=== PATIENT | female | born 1985 | race African-American/Black ===

== ENCOUNTER 2020-07-04 22:41 | Inpatient (IN) ==
[2020-07-04] MEDS ORDERED: hydrALAZINE 20 MG/1 ML VIAL IV STA (23:15)
[2020-07-04] MEDS ORDERED: ONDANSETRON 4 MG/2 ML VIAL IV STA (23:15)
[2020-07-04] MEDS ORDERED: MORPHINE 4 MG/1 ML VIAL IV STA (23:15)
[2020-07-04 23:26] LABS: Basophils % 0.3 % (0.0-0.8); Eosinophils # 0.1 10*3/uL (0.0-0.87); Hematocrit 41.7 VOL% (35.7-47.0); Hemoglobin 13.6 GM/DL (12.0-16.0); Immature Granulocytes % 0.4 %; Immature Granulocytes Absolute 0.04 #; Lymphocytes # 2.5 10*3/uL (1.4-4.0); Lymphocytes % 25.8 % (21.3-54.2); Mean Corpuscular HGB Conc 32.6 GM/DL (32-36); Mean Corpuscular Volume 87.4 FL (87-102); Monocytes % 7.1 % (1.7-12.7); Neutrophils % 65.4 % (38.7-73.9); Platelet Count 305 T/CUMM (130-400); Red Blood Count 4.77 MC/CUMM (3.8-5.5); Red Cell Distribution Width 12.1 % (9.3-17.3); White Blood Count 9.8 T/CUMM (4-12)
[2020-07-04 23:38] LABS: Apearance,Urine Slightly Hazy (Clear); Bacteria,Urine Occasional /HPF (Few); Bilirubin,Urine Negative (Negative); Blood, Urine Negative (Negative); Glucose,Urine (UA) Negative (Negative); Ketones,Urine Negative (Negative); Mucus,Urine Moderate /LPF (Occasional); Nitrite,Urine Negative (Negative); Protein,Urine >=500 MG/DL; RBC,Urine 1 /HPF (0-4); Squamous Epithelial Cell,Urine Occasional /HPF (0-10); Urine Color Amber (Yellow); Urine Specific Gravity 1.028 (1.001-1.035); Urine Urobilinogen < 2.0 EU/DL (0.2-1.0); WBC,Urine 3 /HPF (0-6)
[2020-07-04 23:48] LABS: Albumin 4.1 G/DL (3.4-5.0); Bilirubin,Total 0.4 MG/DL (0.2-1.0); Calcium 9.6 MG/DL (8.5-10.1); Osmolality,Calculated 277.8 MOS/KG (273-304)
[2020-07-05] MEDS ORDERED: hydrALAZINE 20 MG/1 ML VIAL IV STA (01:17)
[2020-07-05] MEDS ORDERED: MORPHINE 4 MG/1 ML VIAL IV STA (01:53)
[2020-07-05] MEDS ORDERED: NICOTINE 21 MG/24 HR PATCH TRANSDERM PRN (04:24)
[2020-07-05] MEDS ORDERED: DEXTROSE 50% 25 GM/50 ML VIAL IV PRN (04:24)
[2020-07-05] MEDS ORDERED: GLUCAGON 1 MG VIAL IM PRN (04:24)
[2020-07-05] MEDS ORDERED: ACETAMINOPHEN 325 MG TABLET PO PRN (04:24)
[2020-07-05] MEDS ORDERED: ALUMINUM/MAGNES/SIMETH MAX STR 30 ML UDCUP PO PRN (04:24)
[2020-07-05] MEDS: SODIUM CHLORIDE 0.9% 1,000 ML IV SCH ×3 (05:47→21:50)
[2020-07-05] MEDS: INSULIN REGULAR 100 UNIT/ML SUBCUT SCH ×3 (05:47→19:31)
[2020-07-05 06:19] LABS: Risk Ratio 4.92; VLDL CHOLESTEROL 36.2 MG/DL
[2020-07-05 06:21] LABS: Albumin 4.2 G/DL (3.4-5.0); Bilirubin,Direct 0.13 MG/DL (0.0-0.20); Bilirubin,Indirect 0.5 MG/DL (0.0-1.0); Bilirubin,Total 0.6 MG/DL (0.2-1.0); Total Protein 9.1 G/DL (6.4-8.3)
[2020-07-05 07:10] LABS: Hepatitis B Core IgM Quant 0.12 Index; Hepatitis B Surface Ag Quant < 0.10 Index; Hepatitis B Surface Ag Result Negative (Negative); Hepatitis C Virus Ab Quant 0.06 Index; Hepatitis C Virus Ab Result Negative (Negative)
[2020-07-05] MEDS: PANTOPRAZOLE 40 MG VIAL IV SCH (09:52)
[2020-07-05] MEDS: PROMETHAZINE 25 MG/1 ML VIAL IM PRN (09:53)
[2020-07-05] MEDS: MORPHINE 4 MG/1 ML VIAL IV PRN ×3 (09:53→19:30)
[2020-07-05 12:15] LABS: HIV Antigen/Antibody Result Nonreactive (Nonreactive)
[2020-07-05] MEDS: ONDANSETRON 4 MG/2 ML VIAL IV PRN (14:23)
[2020-07-06] MEDS: INSULIN REGULAR 100 UNIT/ML SUBCUT SCH ×4 (00:34→17:38)
[2020-07-06] MEDS: MORPHINE 4 MG/1 ML VIAL IV PRN ×5 (01:32→21:36)
[2020-07-06] MEDS: SODIUM CHLORIDE 0.9% 1,000 ML IV SCH ×3 (03:32→23:59)
[2020-07-06 06:13] LABS: Basophils % 0.3 % (0.0-0.8); Eosinophils # 0.1 10*3/uL (0.0-0.87); Eosinophils % 1.4 % (0.00-10.9); Hematocrit 35.5 VOL% (35.7-47.0); Hemoglobin 11.5 GM/DL (12.0-16.0); Immature Granulocytes % 0.3 %; Immature Granulocytes Absolute 0.03 #; Lymphocytes # 3.3 10*3/uL (1.4-4.0); Mean Corpuscular HGB Conc 32.4 GM/DL (32-36); Mean Corpuscular Volume 88.8 FL (87-102); Mean Platelet Volume 11.5 FL (9.6-12.0); Monocytes % 8.2 % (1.7-12.7); Neutrophils % 54.8 % (38.7-73.9); Platelet Count 262 T/CUMM (130-400); Red Cell Distribution Width 12.4 % (9.3-17.3); White Blood Count 9.3 T/CUMM (4-12)
[2020-07-06 06:35] LABS: Albumin 3.1 G/DL (3.4-5.0); Bilirubin,Total 0.6 MG/DL (0.2-1.0); Calcium 8.3 MG/DL (8.5-10.1); Osmolality,Calculated 273.8 MOS/KG (273-304); Total Protein 6.8 G/DL (6.4-8.3)
[2020-07-06] MEDS: PANTOPRAZOLE 40 MG VIAL IV SCH (12:45)
[2020-07-06] MEDS: PROMETHAZINE 25 MG/1 ML VIAL IM PRN (12:46)
[2020-07-06] MEDS: lisinopriL 5 MG TABLET PO SCH (21:46)
[2020-07-07] MEDS: MORPHINE 4 MG/1 ML VIAL IV PRN ×5 (02:06→21:34)
[2020-07-07] MEDS: ONDANSETRON 4 MG/2 ML VIAL IV PRN ×2 (02:07→06:31)
[2020-07-07] MEDS: INSULIN REGULAR 100 UNIT/ML SUBCUT SCH ×4 (06:29→19:24)
[2020-07-07] MEDS: SODIUM CHLORIDE 0.9% 1,000 ML IV SCH ×4 (06:30→22:30)
[2020-07-07] MEDS ORDERED: propofoL 200 MG/20 ML VIAL IV ONE (09:00)
[2020-07-07] MEDS ORDERED: LIDOCAINE 2% 5 ML VIAL ONE (09:00)
[2020-07-07] MEDS: lisinopriL 5 MG TABLET PO SCH ×2 (10:59→21:36)
[2020-07-07] MEDS: PANTOPRAZOLE 40 MG VIAL IV SCH (10:59)
[2020-07-07 14:10] LABS: Albumin 3.1 G/DL (3.4-5.0); Bilirubin,Direct 0.31 MG/DL (0.0-0.20); Bilirubin,Indirect 0.3 MG/DL (0.0-1.0); Bilirubin,Total 0.6 MG/DL (0.2-1.0); Total Protein 6.8 G/DL (6.4-8.3)
[2020-07-07] MEDS ORDERED: LEVOFLOXACIN INJ 500 MG in PREMIX 1 EACH IV ONE (15:08)
[2020-07-07] MEDS ORDERED: metroNIDAZOLE INJ 500 MG in PREMIX 1 EACH IV ONE (15:08)
[2020-07-07] MEDS: hydrALAZINE 20 MG/1 ML VIAL IV PRN (21:30)
[2020-07-07] MEDS: ZALEPLON 5 MG CAPSULE PO PRN (21:37)
[2020-07-08] MEDS: INSULIN REGULAR 100 UNIT/ML SUBCUT SCH ×5 (00:40→23:45)
[2020-07-08] MEDS: PROMETHAZINE 25 MG/1 ML VIAL IM PRN ×2 (00:48→09:19)
[2020-07-08] MEDS: HYDROmorphone 2 MG/1 ML VIAL IV PRN ×5 (01:51→23:43)
[2020-07-08] MEDS: MORPHINE 4 MG/1 ML VIAL IV PRN ×3 (05:18→17:22)
[2020-07-08] MEDS: SODIUM CHLORIDE 0.9% 1,000 ML IV SCH ×4 (05:22→15:41)
[2020-07-08 05:49] LABS: Basophils % 0.3 % (0.0-0.8); Eosinophils # 0.1 10*3/uL (0.0-0.87); Eosinophils % 1.7 % (0.00-10.9); Hematocrit 34.9 VOL% (35.7-47.0); Hemoglobin 11.4 GM/DL (12.0-16.0); Immature Granulocytes % 0.4 %; Immature Granulocytes Absolute 0.03 #; Mean Corpuscular HGB Conc 32.7 GM/DL (32-36); Mean Corpuscular Volume 87.7 FL (87-102); Mean Platelet Volume 11.4 FL (9.6-12.0); Monocytes % 8.6 % (1.7-12.7); Platelet Count 265 T/CUMM (130-400); Red Blood Count 3.98 MC/CUMM (3.8-5.5); Red Cell Distribution Width 12.4 % (9.3-17.3)
[2020-07-08 06:06] LABS: Albumin 3.2 G/DL (3.4-5.0); Bilirubin,Direct 1.25 MG/DL (0.0-0.20); Bilirubin,Total 2.2 MG/DL (0.2-1.0); Total Protein 7.1 G/DL (6.4-8.3)
[2020-07-08 06:07] LABS: Albumin 3.1 G/DL (3.4-5.0); Bilirubin,Total 2.1 MG/DL (0.2-1.0); Calcium 8.8 MG/DL (8.5-10.1); Osmolality,Calculated 279.7 MOS/KG (273-304); Total Protein 7.2 G/DL (6.4-8.3)
[2020-07-08] MEDS: PANTOPRAZOLE 40 MG VIAL IV SCH (11:22)
[2020-07-08] MEDS: lisinopriL 5 MG TABLET PO SCH ×2 (16:01→20:39)
[2020-07-08] MEDS: ONDANSETRON 4 MG/2 ML VIAL IV PRN (20:39)
[2020-07-08] MEDS: ZALEPLON 5 MG CAPSULE PO PRN (20:49)
[2020-07-08] MEDS: hydrALAZINE 20 MG/1 ML VIAL IV PRN (23:46)
[2020-07-09] MEDS: MORPHINE 4 MG/1 ML VIAL IV PRN ×2 (02:23→07:01)
[2020-07-09] MEDS: HYDROmorphone 2 MG/1 ML VIAL IV PRN ×3 (04:46→21:53)
[2020-07-09 06:08] LABS: Basophils % 0.3 % (0.0-0.8); Eosinophils # 0.2 10*3/uL (0.0-0.87); Hematocrit 35.3 VOL% (35.7-47.0); Hemoglobin 11.5 GM/DL (12.0-16.0); Immature Granulocytes % 0.5 %; Immature Granulocytes Absolute 0.04 #; Lymphocytes # 1.8 10*3/uL (1.4-4.0); Lymphocytes % 24.1 % (21.3-54.2); Mean Corpuscular HGB Conc 32.6 GM/DL (32-36); Mean Corpuscular Volume 88.7 FL (87-102); Mean Platelet Volume 11.7 FL (9.6-12.0); Monocytes % 9.6 % (1.7-12.7); Neutrophils % 63.5 % (38.7-73.9); Platelet Count 276 T/CUMM (130-400); Red Blood Count 3.98 MC/CUMM (3.8-5.5); Red Cell Distribution Width 12.5 % (9.3-17.3); White Blood Count 7.5 T/CUMM (4-12)
[2020-07-09 06:45] LABS: Albumin 3.2 G/DL (3.4-5.0); Bilirubin,Total 3.5 MG/DL (0.2-1.0); Calcium 8.9 MG/DL (8.5-10.1); Osmolality,Calculated 274.1 MOS/KG (273-304); Total Protein 7.3 G/DL (6.4-8.3)
[2020-07-09] MEDS: INSULIN REGULAR 100 UNIT/ML SUBCUT SCH ×3 (06:49→19:47)
[2020-07-09] MEDS: lisinopriL 5 MG TABLET PO SCH ×2 (09:48→21:52)
[2020-07-09] MEDS: PANTOPRAZOLE 40 MG VIAL IV SCH (09:48)
[2020-07-09] MEDS ORDERED: LIDOCAINE 1%/EPI INJ 20 ML VIAL ONE (10:23)
[2020-07-09] MEDS ORDERED: BUPIVACAINE MPF 0.25% 30 ML VIAL ONE (10:23)
[2020-07-09] MEDS: SODIUM CHLORIDE 0.9% 1,000 ML IV SCH (10:24)
[2020-07-09] MEDS ORDERED: LEVOFLOXACIN INJ 100 ML IV ONE (10:59)
[2020-07-09] MEDS ORDERED: SEVOFLURANE 1 UNIT/15 MINUTE INH ONE (12:10)
[2020-07-09] MEDS ORDERED: LIDOCAINE 2% 5 ML VIAL ONE (12:10)
[2020-07-09] MEDS ORDERED: propofoL 200 MG/20 ML VIAL IV ONE (12:10)
[2020-07-09] MEDS ORDERED: fentaNYL 100 MCG/2 ML VIAL ONE (12:10)
[2020-07-09] MEDS ORDERED: DEXAMETHASONE 4 MG/1 ML VIAL ONE (12:11)
[2020-07-09] MEDS ORDERED: PHENYLEPHRINE 10 MG/1 ML VIAL IV ONE (12:11)
[2020-07-09] MEDS ORDERED: ROCURONIUM 100 MG/10 ML VIAL IV ONE (12:11)
[2020-07-09] MEDS ORDERED: SUCCINYLCHOLINE 200 MG/10 ML VIAL ONE (12:11)
[2020-07-09] MEDS ORDERED: KETOROLAC 30 MG/1 ML VIAL ONE (12:11)
[2020-07-09] MEDS ORDERED: ONDANSETRON 4 MG/2 ML VIAL ONE ×2 (12:11→12:22)
[2020-07-09] MEDS ORDERED: ACETAMINOPHEN 1,000 MG/100 ML VIAL IV ONE (12:11)
[2020-07-09] MEDS ORDERED: MIDAZOLAM 2 MG/2 ML VIAL ONE (12:12)
[2020-07-09] MEDS ORDERED: NEOSTIGMINE 10 MG/10 ML VIAL ONE (12:12)
[2020-07-09] MEDS ORDERED: GLYCOPYRROLATE 0.4 MG/2 ML VIAL ONE (12:12)
[2020-07-09] MEDS ORDERED: HYDROmorphone 2 MG/1 ML VIAL IV PRN (12:15)
[2020-07-09] MEDS ORDERED: ONDANSETRON 4 MG/2 ML VIAL IV PRN (12:15)
[2020-07-09] MEDS ORDERED: HYDROmorphone 2 MG/1 ML VIAL ONE (12:22)
[2020-07-09] MEDS ORDERED: GLUCAGON 1 MG VIAL IM PRN (13:46)
[2020-07-09] MEDS ORDERED: DEXTROSE 50% 25 GM/50 ML VIAL IV PRN (13:46)
[2020-07-10] MEDS: INSULIN REGULAR 100 UNIT/ML SUBCUT SCH ×3 (00:12→13:54)
[2020-07-10] MEDS: SODIUM CHLORIDE 0.9% 1,000 ML IV SCH ×2 (01:26→01:27)
[2020-07-10] MEDS: HYDROmorphone 2 MG/1 ML VIAL IV PRN ×3 (02:36→12:18)
[2020-07-10] MEDS: ZALEPLON 5 MG CAPSULE PO PRN (02:38)
[2020-07-10 06:00] LABS: Basophils % 0.1 % (0.0-0.8); Eosinophils # 0.1 10*3/uL (0.0-0.87); Eosinophils % 0.5 % (0.00-10.9); Hematocrit 33.7 VOL% (35.7-47.0); Hemoglobin 10.7 GM/DL (12.0-16.0); Immature Granulocytes % 0.5 %; Immature Granulocytes Absolute 0.07 #; Lymphocytes # 2.2 10*3/uL (1.4-4.0); Lymphocytes % 15.7 % (21.3-54.2); Mean Corpuscular HGB Conc 31.8 GM/DL (32-36); Mean Corpuscular Volume 90.1 FL (87-102); Mean Platelet Volume 11.8 FL (9.6-12.0); Monocytes % 8.3 % (1.7-12.7); Neutrophils % 74.9 % (38.7-73.9); Platelet Count 262 T/CUMM (130-400); Red Blood Count 3.74 MC/CUMM (3.8-5.5); Red Cell Distribution Width 12.8 % (9.3-17.3); White Blood Count 13.7 T/CUMM (4-12)
[2020-07-10 06:28] LABS: Albumin 2.9 G/DL (3.4-5.0); Bilirubin,Total 1.4 MG/DL (0.2-1.0); Calcium 8.5 MG/DL (8.5-10.1); Osmolality,Calculated 283.8 MOS/KG (273-304)
[2020-07-10] MEDS: lisinopriL 5 MG TABLET PO SCH (09:16)
[2020-07-10] MEDS: PANTOPRAZOLE 40 MG VIAL IV SCH (09:22)
[2020-07-10] MEDS: ONDANSETRON 4 MG/2 ML VIAL IV PRN (12:17)
[2020-07-10 14:17] VITALS: BP 144/80
[2020-07-10] MEDS: PROMETHAZINE 25 MG/1 ML VIAL IM PRN (14:30)
[2020-07-10] MEDS ORDERED: INSULIN ASPART PROTAMINE/ASPART 70/30 100 UNIT/ML SUBCUT SCH (16:30)
[2020-07-11] MEDS ORDERED: amLODIPine 10 MG TABLET PO SCH (09:00)
[2020-07-14 13:31] LABS: Smooth Muscle Antibody Negative (Negative)
[2020-07-14 14:02] LABS: Mitochondrial Antibody (M2) <0.1 U
== END 2020-07-10 15:30 | disposition home or self-care (01) | DRG 417 ==
LOC: N.EDINP 22:41 → N.ED 22:41 → SUATTDRO 07-05 04:09 → N.3E 07-05 04:18
PROVIDERS: ADMIT Internal Medicine; ATTEND Internal Medicine
PROC: LAPCHOL (2020-07-09 10:43)

== ENCOUNTER 2020-11-15 13:14 | Inpatient (IN) ==
[2020-11-15] MEDS ORDERED: SODIUM CHLORIDE 0.9% 2,000 ML IV STA (13:49)
[2020-11-15] MEDS ORDERED: ONDANSETRON 4 MG/2 ML VIAL IV STA (13:49)
[2020-11-15] MEDS ORDERED: KETOROLAC 30 MG/1 ML VIAL IV STA (13:49)
[2020-11-15 14:22] LABS: Basophils % 0.2 % (0.0-0.8); Eosinophils % 0.1 % (0.00-10.9); Hematocrit 43.9 VOL% (35.7-47.0); Hemoglobin 14.7 GM/DL (12.0-16.0); Immature Granulocytes % 0.6 %; Immature Granulocytes Absolute 0.11 #; Lymphocytes # 1.4 10*3/uL (1.4-4.0); Lymphocytes % 7.6 % (21.3-54.2); Mean Corpuscular HGB Conc 33.5 GM/DL (32-36); Mean Corpuscular Volume 82.7 FL (87-102); Monocytes % 6.4 % (1.7-12.7); Neutrophils % 85.1 % (38.7-73.9); Platelet Count 275 T/CUMM (130-400); Red Blood Count 5.31 MC/CUMM (3.8-5.5); Red Cell Distribution Width 14.1 % (9.3-17.3); White Blood Count 18.8 T/CUMM (4-12)
[2020-11-15 14:27] LABS: Bilirubin,Urine Negative (Negative); Blood, Urine Small mg/dL (Negative); Glucose,Urine (UA) >=500 mg/dL (Negative); Ketones,Urine Negative (Negative); Nitrite,Urine Negative (Negative); Protein,Urine Negative; RBC,Urine 1 /HPF (0-4); Squamous Epithelial Cell,Urine Occasional /HPF (0-10); Urine Appearance CLEAR (Clear); Urine Color Straw (Yellow); Urine Specific Gravity 1.027 (1.001-1.035); Urine Urobilinogen < 2.0 EU/DL (0.2-1.0); WBC,Urine 1 /HPF (0-6)
[2020-11-15 14:52] LABS: Alanine Aminotransferase 22 U/L (13-56); Albumin 4.3 G/DL (3.4-5.0); Alkaline Phosphatase 149 U/L (45-117); Amylase 47 U/L (25-115); Aspartate Amino Transferase 14 U/L (0-37); Blood Urea Nitrogen 23 MG/DL (7-18); Calcium 10.5 MG/DL (8.5-10.1); Estimated Glom Filtration Rate 65 ML/MIN; Osmolality,Calculated 287.6 MOS/KG (273-304); Total Protein 9.9 G/DL (6.4-8.3)
[2020-11-15 14:57] LABS: Glucose 722 MG/DL (74-106)
[2020-11-15] MEDS ORDERED: INSULIN REGULAR 100 UNIT/ML IV ONE (15:10)
[2020-11-15] MEDS ORDERED: DEXTROSE 50% 25 GM/50 ML VIAL IV PRN ×2 (16:33→16:38)
[2020-11-15] MEDS ORDERED: GLUCAGON 1 MG VIAL IM PRN (16:33)
[2020-11-15] MEDS ORDERED: PROMETHAZINE 25 MG/1 ML VIAL IM PRN (16:33)
[2020-11-15] MEDS ORDERED: ACETAMINOPHEN 325 MG TABLET PO PRN (16:33)
[2020-11-15] MEDS: MORPHINE 4 MG/1 ML VIAL IV PRN ×2 (18:06→22:05)
[2020-11-15] MEDS: LEVOFLOXACIN INJ 500 MG in PREMIX 1 EACH IV SCH (18:09)
[2020-11-15] MEDS: SODIUM CHLORIDE 0.9% 1,000 ML IV SCH (18:11)
[2020-11-15] MEDS: INSULIN REGULAR 100 UNIT/ML SUBCUT SCH (20:49)
[2020-11-15] MEDS: ENOXAPARIN 40 MG/0.4 ML SYRINGE SUBCUT SCH (20:51)
[2020-11-16] MEDS: SODIUM CHLORIDE 0.9% 1,000 ML IV SCH ×4 (01:19→22:40)
[2020-11-16] MEDS: MORPHINE 4 MG/1 ML VIAL IV PRN ×4 (05:00→21:05)
[2020-11-16] MEDS: ONDANSETRON 4 MG/2 ML VIAL IV PRN ×4 (05:01→21:05)
[2020-11-16 08:01] LABS: Basophils % 0.2 % (0.0-0.8); Eosinophils % 0.2 % (0.00-10.9); Hematocrit 39.2 VOL% (35.7-47.0); Hemoglobin 12.6 GM/DL (12.0-16.0); Immature Granulocytes % 0.4 %; Immature Granulocytes Absolute 0.04 #; Lymphocytes # 2.1 10*3/uL (1.4-4.0); Mean Corpuscular HGB Conc 32.1 GM/DL (32-36); Mean Corpuscular Volume 86.3 FL (87-102); Mean Platelet Volume 12.3 FL (9.6-12.0); Monocytes % 8.2 % (1.7-12.7); Platelet Count 202 T/CUMM (130-400); Red Blood Count 4.54 MC/CUMM (3.8-5.5); Red Cell Distribution Width 13.6 % (9.3-17.3); White Blood Count 10.5 T/CUMM (4-12)
[2020-11-16] MEDS: INSULIN REGULAR 100 UNIT/ML SUBCUT SCH ×4 (08:24→21:04)
[2020-11-16] MEDS: SERTRALINE 50 MG TABLET PO SCH (08:25)
[2020-11-16] MEDS: LACTOBACILLUS ACIDOPHILUS/BULGARICUS CAPLET PO SCH (08:28)
[2020-11-16 08:32] LABS: Albumin 3.2 G/DL (3.4-5.0); Bilirubin,Total 0.4 MG/DL (0.2-1.0); Calcium 8.6 MG/DL (8.5-10.1); Osmolality,Calculated 282.2 MOS/KG (273-304); Total Protein 7.5 G/DL (6.4-8.3)
[2020-11-16] MEDS ORDERED: amLODIPine 5 MG TABLET PO SCH (09:00)
[2020-11-16] MEDS ORDERED: PANTOPRAZOLE 40 MG TABLET PO SCH (09:00)
[2020-11-16] MEDS ORDERED: amLODIPine 10 MG TABLET PO SCH (14:28)
[2020-11-16] MEDS ORDERED: hydrALAZINE 20 MG/1 ML VIAL IV PRN (14:29)
[2020-11-16] MEDS: LEVOFLOXACIN INJ 500 MG in PREMIX 1 EACH IV SCH (16:50)
[2020-11-16] MEDS ORDERED: INSULIN GLARGINE 100 UNIT/ML SUBCUT SCH (21:00)
[2020-11-16] MEDS: ENOXAPARIN 40 MG/0.4 ML SYRINGE SUBCUT SCH (21:04)
[2020-11-16] MEDS: PANTOPRAZOLE 40 MG TABLET PO SCH (22:18)
[2020-11-16] MEDS ORDERED: ALUMINUM/MAGNES/SIMETH MAX STR 30 ML UDCUP PO PRN (22:19)
[2020-11-17] MEDS: MORPHINE 4 MG/1 ML VIAL IV PRN ×2 (04:03→09:14)
[2020-11-17] MEDS: ONDANSETRON 4 MG/2 ML VIAL IV PRN (04:04)
[2020-11-17] MEDS: SODIUM CHLORIDE 0.9% 1,000 ML IV SCH (05:30)
[2020-11-17 07:57] VITALS: BP 169/98
[2020-11-17] MEDS: SERTRALINE 50 MG TABLET PO SCH (09:08)
[2020-11-17] MEDS: LACTOBACILLUS ACIDOPHILUS/BULGARICUS CAPLET PO SCH (09:09)
[2020-11-17] MEDS: INSULIN REGULAR 100 UNIT/ML SUBCUT SCH (09:09)
[2020-11-17] MEDS: PANTOPRAZOLE 40 MG TABLET PO SCH (09:09)
[2020-11-17] MEDS ORDERED: INSULIN GLARGINE 100 UNIT/ML SUBCUT SCH (10:00)
[2020-11-17] MEDS ORDERED: lisinopriL 5 MG TABLET PO SCH (11:00)
[2020-11-17] MEDS ORDERED: INSULIN LISPRO 100 UNIT/ML SUBCUT SCH (11:30)
== END 2020-11-17 10:30 | disposition home or self-care (01) | DRG 683 ==
LOC: N.ED 13:14 → SUATTDRO 16:38 → N.EDINP 16:38 → N.5E 17:35
PROVIDERS: ADMIT Internal Medicine; ATTEND Internal Medicine Geriatric Medicine